=== PATIENT | female | born 1980 | race Two or more races ===

== ENCOUNTER → 2022-02-22 | Outpatient (CLI) | payer MEDICAID ==
[2022-02-22 12:54] LABS: Basophils # (auto) 0 10 ^3/uL (0-0.2); Eosinophils # (auto) 0.1 10 ^3/uL (0-0.8); Lymphocytes # (auto) 2.2 10 ^3/uL (0.4-5.4); Monocytes # (auto) 0.5 10 ^3/uL (0-1.3); Neutrophils # (auto) 3.8 10 ^3/uL (1.6-8.6); Red Cell Distribution Width 15.1 % (11.8-14.3)
[2022-02-22 12:56] LABS: Basophils % (auto) 0.6 % (0.0-2.0); Eosinophils % (auto) 1.3 % (0.0-7.0); Hematocrit 39.4 % (36.0-46.0); Hemoglobin 12.9 g/dL (12.2-16.2); Lymphocytes % (auto) 32.9 % (10.0-50.0); Mean Corpuscular Hemoglobin 25.8 pg (28.0-32.0); Mean Corpuscular Hgb Conc. 32.6 g/dL (32.0-36.0); Mean Corpuscular Volume 79.1 fL (80.0-100.0); Monocytes % (auto) 7.9 % (0.0-12.0); Neutrophils % (auto) 57.3 % (37.0-80.0); Nucleated Red Blood Cells % 0.1 %; Red Blood Cells 4.98 10^6/uL (4.0-5.20); White Blood Cell 6.6 10^3/uL (4.4-10.8)
[2022-02-22 13:03] LABS: Urine Bacteria NONE SEEN /hpf (None Seen); Urine Blood Negative /uL (Negative); Urine Specific Gravity 1.011 (1.001-1.035); Urine WBC <1 /hpf (0 - 5)
[2022-02-22 13:10] LABS: Potassium 3.9 mmol/L (3.5-5.1)
[2022-02-22 13:19] LABS: Albumin 3.5 g/dL (3.4-5.0); BUN/Creatinine Ratio 11.7; Bilirubin, Total 0.4 mg/dL (0.2-1.0); Calcium 9.2 mg/dL (8.5-10.1); Total Protein 8.5 g/dL (6.4-8.2)
== END | disposition home or self-care (01) ==
LOC: LAB 11:44
PROVIDERS: ATTEND Internal Medicine
DX: E78.5 Hyperlipidemia, unspecified (principal); E66.9 Obesity, unspecified; E11.9 Type 2 diabetes mellitus without complications; I10 Essential (primary) hypertension
CPT/HCPCS: 36415; 80053; 80061; 81001; 82043; 83036; 85025

== ENCOUNTER → 2022-04-17 | Outpatient (CLI) | payer MEDICAID ==
[2022-04-17 10:32] LABS: Cholesterol 128 mg/dL (< 200)
[2022-04-17 10:38] LABS: HDL Cholesterol 50 mg/dL (40-59); LDL Cholesterol 71 mg/dL (< 100); Triglycerides 75 mg/dL (< 150)
== END | disposition home or self-care (01) ==
LOC: LAB 09:35
PROVIDERS: ATTEND Internal Medicine
DX: E11.9 Type 2 diabetes mellitus without complications (principal); I10 Essential (primary) hypertension; E66.01 Morbid (severe) obesity due to excess calories
CPT/HCPCS: 36415; 80061; 83036

== ENCOUNTER → 2022-06-26 | Outpatient (CLI) | payer MEDICAID ==
[2022-06-26 12:57] LABS: BUN/Creatinine Ratio 20.5; Potassium 4.1 mmol/L (3.5-5.1)
== END | disposition home or self-care (01) ==
LOC: LAB 11:44
PROVIDERS: ATTEND Internal Medicine
DX: E11.9 Type 2 diabetes mellitus without complications (principal)
CPT/HCPCS: 36415; 80048

== ENCOUNTER → 2022-09-24 | Outpatient (CLI) | payer MEDICAID ==
[2022-09-24 08:22] LABS: Potassium 4.3 mmol/L (3.5-5.1)
[2022-09-24 08:30] LABS: Albumin 3.6 g/dL (3.4-5.0); Bilirubin, Total 0.3 mg/dL (0.2-1.0); Calcium 8.8 mg/dL (8.5-10.1); Total Protein 8.3 g/dL (6.4-8.2)
== END | disposition home or self-care (01) ==
LOC: LAB 07:34
PROVIDERS: ATTEND Internal Medicine
DX: I10 Essential (primary) hypertension (principal); E11.9 Type 2 diabetes mellitus without complications
CPT/HCPCS: 36415; 80053; 82043; 83036

== ENCOUNTER → 2022-12-24 | Outpatient (CLI) | payer MEDICAID ==
[2022-12-24 12:56] LABS: Calcium 8.8 mg/dL (8.5-10.1); Potassium 4.3 mmol/L (3.5-5.1)
[2022-12-24 12:58] LABS: BUN/Creatinine Ratio 13.8 (10.0-20.0)
== END | disposition home or self-care (01) ==
LOC: LAB 11:32
PROVIDERS: ATTEND Internal Medicine
DX: E11.9 Type 2 diabetes mellitus without complications (principal)
CPT/HCPCS: 36415; 80048; 83036

== ENCOUNTER → 2023-03-10 | Outpatient (CLI) | payer MEDICAID ==
[2023-03-10 10:51] LABS: Urine Bacteria NONE SEEN /hpf (None Seen); Urine Blood Negative /uL (Negative); Urine Specific Gravity 1.026 (1.001-1.035); Urine WBC <1 /hpf (0 - 5)
[2023-03-10 11:01] LABS: Potassium 3.8 mmol/L (3.5-5.1)
[2023-03-10 11:15] LABS: BUN/Creatinine Ratio 13.5 (10.0-20.0)
[2023-03-10 11:40] LABS: Micro Albumin 18.6 mg/L (0-30.0)
== END | disposition home or self-care (01) ==
LOC: LAB 10:17
PROVIDERS: ATTEND Internal Medicine
DX: I10 Essential (primary) hypertension (principal); E11.9 Type 2 diabetes mellitus without complications
CPT/HCPCS: 36415; 80048; 81001; 82043; 82570; 83036

== ENCOUNTER → 2023-06-09 | Outpatient (CLI) | payer MEDICAID | END | disposition home or self-care (01) | LOC: LAB 10:13 | PROVIDERS: ATTEND Internal Medicine | DX: E11.9 Type 2 diabetes mellitus without complications (principal) | CPT/HCPCS: 36415; 83036 ==

== ENCOUNTER → 2023-09-08 | Outpatient (CLI) | payer MEDICAID ==
[2023-09-08 10:32] LABS: Anion Gap 4 (5-15); Calcium 9.7 mg/dL (8.5-10.1); Carbon Dioxide 29 mmol/L (20-30); Chloride 105 mmol/L (98-107); Potassium 4.2 mmol/L (3.5-5.1); Sodium 138 mmol/L (136-145)
[2023-09-08 10:37] LABS: Glucose 103 mg/dL (74-106)
[2023-09-08 10:38] LABS: BUN/Creatinine Ratio 7.6 (10.0-20.0); Blood Urea Nitrogen 8 mg/dL (9-23)
[2023-09-08 13:42] LABS: Creatinine, Urine 129.05 mg/dL (30.0-125.0)
== END | disposition home or self-care (01) ==
LOC: LAB 09:31
PROVIDERS: ATTEND Internal Medicine
DX: E11.9 Type 2 diabetes mellitus without complications (principal)
CPT/HCPCS: 36415; 80048; 82043; 82570; 83036

== ENCOUNTER → 2024-03-04 | Outpatient (CLI) | payer MEDICAID ==
[2024-03-04 11:31] LABS: Basophils # (auto) 0 10 ^3/uL (0-0.2); Basophils % (auto) 0.3 % (0.0-2.0); Eosinophils # (auto) 0.1 10 ^3/uL (0-0.8); Eosinophils % (auto) 1.4 % (0.0-7.0); Hematocrit 38.4 % (36.0-46.0); Hemoglobin 13.4 g/dL (12.2-16.2); Lymphocytes # (auto) 2.8 10 ^3/uL (0.4-5.4); Lymphocytes % (auto) 26.9 % (10.0-50.0); Mean Corpuscular Volume 85.6 fL (80.0-100.0); Monocytes # (auto) 0.8 10 ^3/uL (0-1.3); Neutrophils # (auto) 6.5 10 ^3/uL (1.6-8.6); Neutrophils % (auto) 63.4 % (37.0-80.0); Red Blood Cells 4.48 10^6/uL (4.0-5.20); Red Cell Distribution Width 13.4 % (11.8-14.3); White Blood Cell 10.3 10^3/uL (4.4-10.8)
[2024-03-04 12:24] LABS: Alanine Aminotransferase 15 U/L (7-40); Alkaline Phosphatase 57 U/L (46-116); Anion Gap 7 (5-15); Aspartate Aminotransferase 13 U/L (13-40); BUN/Creatinine Ratio 8.9 (10.0-20.0); Blood Urea Nitrogen 8 mg/dL (9-23); Calcium 9.3 mg/dL (8.7-10.4); Carbon Dioxide 27 mmol/L (20-30); Chloride 107 mmol/L (98-107); Glucose 98 mg/dL (74-106); LDL Cholesterol 94 mg/dL (< 100); Potassium 3.5 mmol/L (3.5-5.1); Sodium 141 mmol/L (136-145); Triglycerides 87 mg/dL (< 150)
[2024-03-04 12:25] LABS: Bilirubin, Total 0.4 mg/dL (0.2-1.0); Cholesterol 155 mg/dL (< 200); HDL Cholesterol 45 mg/dL (40-59); Total Protein 7.1 g/dL (5.7-8.2)
== END | disposition home or self-care (01) ==
LOC: LAB 11:18
PROVIDERS: ATTEND Internal Medicine
DX: E11.9 Type 2 diabetes mellitus without complications (principal)
CPT/HCPCS: 36415; 80053; 80061; 85025

== ENCOUNTER → 2024-03-09 | Outpatient (CLI) | payer MEDICAID ==
[2024-03-09 11:59] LABS: Urine Bacteria None Seen /hpf (None Seen)
[2024-03-09 12:31] LABS: Urine Blood Negative /uL (Negative); Urine Clarity Clear (Clear); Urine Color Light-Yellow (Yellow); Urine Protein, UAD Negative (Negative); Urine Specific Gravity 1.017 (1.001-1.035); Urine Urobilinogen Normal (Negative); Urine WBC <1 /hpf (0 - 5); Urine pH 6.5 (5.0-9.0)
[2024-03-09 12:35] LABS: Basophils # (auto) 0 10 ^3/uL (0-0.2); Basophils % (auto) 0.4 % (0.0-2.0); Eosinophils # (auto) 0.1 10 ^3/uL (0-0.8); Eosinophils % (auto) 1.4 % (0.0-7.0); Hematocrit 38.6 % (36.0-46.0); Hemoglobin 13.1 g/dL (12.2-16.2); Lymphocytes # (auto) 2.5 10 ^3/uL (0.4-5.4); Lymphocytes % (auto) 34.6 % (10.0-50.0); Mean Corpuscular Hemoglobin 28.9 pg (28.0-32.0); Mean Corpuscular Hgb Conc. 33.8 g/dL (32.0-36.0); Mean Corpuscular Volume 85.6 fL (80.0-100.0); Monocytes # (auto) 0.6 10 ^3/uL (0-1.3); Monocytes % (auto) 8.4 % (0.0-12.0); Neutrophils % (auto) 55.2 % (37.0-80.0); Red Blood Cells 4.51 10^6/uL (4.0-5.20); Red Cell Distribution Width 13.9 % (11.8-14.3); White Blood Cell 7.3 10^3/uL (4.4-10.8)
[2024-03-09 13:32] LABS: Erythrocyte Sedimentation Rate 17 mm/hr (0-20)
== END | disposition home or self-care (01) ==
LOC: LAB 11:48
PROVIDERS: ATTEND Internal Medicine
DX: Z12.11 Encounter for screening for malignant neoplasm of colon (principal); I10 Essential (primary) hypertension; E11.9 Type 2 diabetes mellitus without complications; E78.5 Hyperlipidemia, unspecified
CPT/HCPCS: 36415; 81001; 85025; 85652

== ENCOUNTER → 2024-03-29 | Outpatient (CLI) | payer MEDICAID | END | disposition home or self-care (01) | LOC: LAB 15:16 | PROVIDERS: ATTEND Internal Medicine | DX: Z12.11 Encounter for screening for malignant neoplasm of colon (principal); E11.9 Type 2 diabetes mellitus without complications; E78.5 Hyperlipidemia, unspecified | CPT/HCPCS: 82270 ==

== ENCOUNTER → 2025-02-09 | Outpatient (CLI) | payer MEDICAID ==
[~2025-02-09] VITALS: Ht 170.2 cm; Wt 117.9 kg
[~2025-02-09] MED LIST: ADENOSINE 90 MG/30 ML INJ IV ONE; ADENOSINE 99 MG in GIVE UN-DILUTED 0 ML IV ONE
== END | disposition home or self-care (01) ==
LOC: Rad HDHVI 09:28
PROVIDERS: ATTEND Internal Medicine Cardiovascular Disease
DX: Z01.810 Encounter for preprocedural cardiovascular examination (principal); I10 Essential (primary) hypertension; I49.1 Atrial premature depolarization; I44.0 Atrioventricular block, first degree; E11.9 Type 2 diabetes mellitus without complications; E78.5 Hyperlipidemia, unspecified; Z13.6 Encounter for screening for cardiovascular disorders; Z82.49 Family history of ischemic heart disease and other diseases of the circulatory system
CPT/HCPCS: 78452; 93017; A9500; J0153

== ENCOUNTER 2025-03-21 09:03 | Outpatient (CLI) | payer MEDICAID ==
[2025-03-21 09:11] VITALS: BP 116/67; PULSE 76; RESP 16; O2SAT 97
[2025-03-21 09:43] VITALS: BP 111/61; PULSE 68; RESP 16; O2SAT 97
[2025-03-21] MEDS ORDERED: GABA400C PO (11:21)
[2025-03-21] MEDS ORDERED: SEMA2INJ3 SC (11:21)
[2025-03-21] MEDS ORDERED: IBUP-1454 PO (11:21)
[2025-03-21] MEDS ORDERED: METH-1181 PO (11:21)
[2025-03-21] MEDS ORDERED: METO-159 PO (11:21)
[2025-03-21] MEDS ORDERED: ATOR20TA50 PO (11:21)
[2025-03-21] MEDS ORDERED: AMLO1TAB23 PO (11:21)
[2025-03-21] MEDS ORDERED: METF-372 PO (11:21)
[2025-03-21] MEDS ORDERED: LISI40TA16 PO (11:21)
[2025-03-21] MEDS ORDERED: MESA400C5 PO (11:21)
[2025-03-21] MEDS ORDERED: ALOG1TAB2 PO (11:21)
[2025-03-21] MEDS ORDERED: TRIA37.586 PO (11:21)
[2025-03-21] MEDS ORDERED: DAPA1TAB4 PO (11:21)
[2025-03-21] MEDS ORDERED: FINE20TA PO (11:21)
[2025-03-21] MEDS ORDERED: TRAM50TA2 PO (11:21)
[2025-03-21] MEDS ORDERED: LIDO3CRE16 TOP (11:24)
--- NOTE | 2025-03-21 12:30 | DVH ---
XY CHEST TWO VIEWS ROUTINE CLINICAL HISTORY: PRE OP CARDIAC CLEARANCE, pain COMPARISON: None TECHNIQUE: Frontal and lateral view of the chest was obtained FINDINGS: Lines and Tubes: None Lungs: No focal consolidation. Pleura: No effusion. No pneumothorax. Cardiomediastinal contours: Unremarkable Bones: No acute osseous abnormality. IMPRESSION: No acute cardiopulmonary disease.
== END 2025-03-21 17:00 | disposition home or self-care (01) ==
LOC: Rad HDHVI 09:03
PROVIDERS: ATTEND Internal Medicine Cardiovascular Disease
DX: Z01.818 Encounter for other preprocedural examination (principal); R94.31 Abnormal electrocardiogram [ECG] [EKG]; I51.89 Other ill-defined heart diseases
CPT/HCPCS: 71046; 93005; G0463

== ENCOUNTER 2025-03-24 06:56 | Day surgery (SDC) | payer MEDICAID ==
[2025-03-21 12:16] LABS: Hematocrit 41.7 % (36.0-46.0); Hemoglobin 14.2 g/dL (12.2-16.2); Mean Corpuscular Hemoglobin 28.9 pg (28.0-32.0); Mean Corpuscular Volume 85.1 fL (80.0-100.0); Nucleated Red Blood Cells % 0.0 %
[2025-03-21 12:34] LABS: Chloride 103 mmol/L (98-107); Potassium 3.8 mmol/L (3.5-5.1)
[2025-03-21 12:35] LABS: Calcium 9.8 mg/dL (8.7-10.4)
[2025-03-21 12:38] LABS: INR 0.94 (0.9-1.15); Partial Thromboplastin Time 25.4 SEC (24.5-34.5); Prothrombin Time 10.0 sec (9.3-11.8)
[2025-03-21 12:39] LABS: Carbon Dioxide 29 mmol/L (20-31)
[2025-03-21 12:40] LABS: BUN/Creatinine Ratio 12.7 (10.0-20.0); Blood Urea Nitrogen 17 mg/dL (9-23); Glucose 99 mg/dL (74-106)
[2025-03-21 14:13] LABS: Anion Gap 6 (5-15); Sodium 138 mmol/L (136-145)
[2025-03-24] VITALS (7 sets, daily range): BP systolic 121–148; BP diastolic 78–104; PULSE 62–79; RESP 12–15; O2SAT 94–98
[~2025-03-24] VITALS: Ht 170.2 cm; Wt 111.1 kg
[~2025-03-24 06:56] MED LIST changes: -ADENOSINE 90 MG/30 ML INJ IV ONE; -ADENOSINE 99 MG in GIVE UN-DILUTED 0 ML IV ONE; +ALOG1TAB2 PO; +AMLO1TAB23 PO; +ATOR20TA50 PO; +DAPA1TAB4 PO; +FINE20TA PO; +GABA400C PO; +IBUP-1454 PO; +LIDO3CRE16 TOP; +LISI40TA16 PO; +MESA400C5 PO; +METF-372 PO; +METH-1181 PO; +METO-159 PO; +SEMA2INJ3 SC; +TRAM50TA2 PO; +TRIA37.586 PO
[2025-03-24] MEDS ORDERED: IOHEXOL 350 MG/ML 100ML IJ ONE (07:31)
[2025-03-24] MEDS ORDERED: LIDOCAINE 2%HCL (LOCAL ANESTH.) INJ 20ML MDV ONE (08:21)
[2025-03-24] MEDS ORDERED: ANGIOMAX 250 MG VIAL IV ONE (08:25)
[2025-03-24] MEDS ORDERED: SODIUM CHL 0.9% 0 ML ONE (08:25)
[2025-03-24] MEDS ORDERED: MIDAZOLAM HCL 2MG/2ML 2ml VIAL (1mg/ml) ONE (10:37)
[2025-03-24] MEDS ORDERED: fentaNYL CITRATE 100 MCG/2 ML VL ONE (10:37)
--- NOTE | 2025-03-24 12:08 | DVHDS ---
DATE OF DISCHARGE: 03/24/2025 DISCHARGE DIAGNOSES: * Hypertension. * Diabetes. * Preop clearance for lower back surgery. HOSPITAL COURSE: The patient had abnormal stress test. Coronary angiography failed to demonstrate any epicardial disease. Therefore, the patient may proceed with surgery. She is ASA II classification, ejection fraction of 60% with an LVEDP of 12 mmHg. Follow up with me in 1 week. Stable at the time of discharge. DISPOSITION: Home. ACTIVITY: As instructed. DIET: 2 gram sodium diet. Inder Carolina MD SA/EKT TID: [id number] RECEIPT: [id number]
--- NOTE | 2025-03-24 12:21 | DVHOP ---
DATE OF SURGERY: 03/24/2025 PROCEDURES TO BE PERFORMED: * Selective left and right coronary angiography. * Ventriculogram. * Right iliac angiography. * Conscious sedation. DESCRIPTION OF PROCEDURE: The patient was prepped and draped in the surgical field. 1% Xylocaine used to anesthetize the right groin. Using a Cook needle, right femoral artery was engaged using a Seldinger technique, a 6-Romansh sheath was placed in the right femoral artery. Using a 6-Romansh JL4 catheter, 6-Romansh JR4 catheter, selective left and right coronary angiographies were performed. A 6-Romansh pigtail catheter and ventriculogram was done. There were no complications. The patient tolerated the procedure well. Right femoral arteriotomy site was closed using the AngioSeal device. RESULTS: * Left main normal. * Left anterior descending artery without any flow restrictive lesion. * Circumflex dominant vessel without any flow restrictive lesion. * Right coronary artery non-dominant vessel, 2.5 mm in size without any flow restrictive lesion. * Left ventricular function was preserved with an estimated EF of 60% with an LVEDP of 10 to 12 mmHg with no gradient across the aortic valve. CONCLUSION: Thus, the patient may proceed with spinal surgery from cardiac standpoint. Coronary anatomy was normal with circumflex dominant system. Echocardiogram shows an ejection fraction of 60% as well. No evidence of pulmonary hypertension or left ventricular end diastolic pressure elevation. She is ASA II classification. I will continue to follow the patient. Inder Carolina MD SA/TESSA TID: [id number] RECEIPT: [id number]
[2025-03-24] MEDS: HYDROcodone-ACET 5/325MG TAB PO ONE (12:40)
--- NOTE | 2025-03-24 12:50 | DVHHP ---
ADMIT DATE: 03/24/2025 HISTORY OF PRESENT ILLNESS: The patient is a 45-year-old obese female. She was scheduled to undergo lower back surgery. She needed cardiac clearance. She underwent stress test. Stress test shows inferolateral reversibility and I believe it is tissue attenuation because of the large breast and body size, but because she needs surgical clearance, it is felt that the patient should undergo coronary angiography, even though the index of suspicion is low, but with an abnormal stress Cardiolite and with a high-risk surgery which required prolonged anesthesia, it is felt at best to undergo coronary angiography. PAST MEDICAL HISTORY: Significant for hypertension, hyperlipidemia and diabetes as well. CURRENT MEDICATIONS: Include amlodipine, atorvastatin, lisinopril, and metoprolol. SOCIAL HISTORY: She used to smoke, but discontinued smoking approximately 3 years ago in 2021. She is a noninsulin-dependent diabetic. She denies any cardiac arrest. She denies any history of any renal failure. She is hypertensive; however, no fever, no chills, no melena or hematochezia, no hematemesis, hemoptysis, or hematuria. She denies any seizure disorder, any head trauma. Denies any movement disorder. She is morbidly obese and will require weight loss reduction. I have stressed the need for her to do weight loss reduction because going through for lumbar radiculopathy without weight loss should not improve significantly and I told her the downside. PHYSICAL EXAMINATION: VITAL SIGNS: Blood pressure is 142/80, pulse 70, O2 saturation 98%. HEENT: Pupils are reactive. Funduscopic exam is benign. Sclerae anicteric. Extraocular muscles are intact. No papilledema appreciated. Oral mucosa moist. Posterior pharynx without any exudate. NECK: No cervical adenopathy. No supraclavicular adenopathy. No JVD appreciated. Carotid pulses are 2+ and symmetrical. Thyroid is within normal limits. PULMONARY: Clear to auscultation. No tympanic percussion. No egophony noted. No rhonchi. No wheezes. CARDIOVASCULAR: Regular rate, distant heart sounds, however. ABDOMEN: Obese, unable to appreciate organomegaly. Stool guaiac is negative. NEUROLOGIC: The patient is intact. DTRs are 2+ symmetrical. Cranial nerves 2-12 are within normal limits. EKG does not show any changes. Stress test as indicated shows lateral apical and inferior reversibility with preserved left ventricular ejection fraction. ASSESSMENT AND PLAN: Thus, the patient is now to undergo left heart catheterization because of abnormal stress test and also because the patient needs risk stratification before she undergoes lumbar surgery. We will make further recommendations after risks and benefits were explained to the patient. Inder Carolina MD SA/DIGNA/TRELL TID: [id number] RECEIPT: [id number]
== END 2025-03-24 13:45 | disposition home or self-care (01) ==
LOC: CATH 06:56
PROVIDERS: ATTEND Internal Medicine Cardiovascular Disease
DX: R94.39 Abnormal result of other cardiovascular function study (principal); E11.9 Type 2 diabetes mellitus without complications; E66.01 Morbid (severe) obesity due to excess calories; E78.5 Hyperlipidemia, unspecified; I10 Essential (primary) hypertension; Z87.891 Personal history of nicotine dependence; Z79.899 Other long term (current) drug therapy; Z98.890 Other specified postprocedural states
CPT/HCPCS: 36415; 80048; 84702; 85025; 85610; 85730; 93458; C1760; C1894; J1644; J2250; J3010; J7030; Q9967; 99152

== ENCOUNTER → 2025-04-20 | Outpatient (CLI) | payer MEDICAID ==
[2025-04-20 10:34] LABS: Hematocrit 42.8 % (36.0-46.0); Hemoglobin 14.8 g/dL (12.2-16.2); Mean Corpuscular Hemoglobin 29.1 pg (28.0-32.0); Mean Corpuscular Volume 84.6 fL (80.0-100.0); Nucleated Red Blood Cells % 0.1 %
[2025-04-20 10:37] LABS: Urine Protein, UAD Negative (Negative)
[2025-04-20 10:38] LABS: Alanine Aminotransferase 11 U/L (7-40); Albumin 4.7 g/dL (3.2-4.8); Alkaline Phosphatase 66 U/L (46-116); Anion Gap 11 (5-15); BUN/Creatinine Ratio 13.6 (10.0-20.0); Bilirubin, Total 0.5 mg/dL (0.2-1.0); Blood Urea Nitrogen 14 mg/dL (9-23); Calcium 10.0 mg/dL (8.7-10.4); Carbon Dioxide 26 mmol/L (20-31); Chloride 103 mmol/L (98-107); Cholesterol 168 mg/dL (< 200); Glucose 87 mg/dL (74-106); HDL Cholesterol 49 mg/dL (40-59); Potassium 3.7 mmol/L (3.5-5.1); Sodium 140 mmol/L (136-145); Triglycerides 86 mg/dL (< 150)
[2025-04-20 10:41] LABS: Total Protein 8.8 g/dL (5.7-8.2)
[2025-04-20 10:48] LABS: Microalb/Creat Ratio, Urine 42.0
== END | disposition home or self-care (01) ==
LOC: LAB 09:48
PROVIDERS: ATTEND Internal Medicine
DX: E11.9 Type 2 diabetes mellitus without complications (principal); E78.5 Hyperlipidemia, unspecified; E66.9 Obesity, unspecified; Z12.11 Encounter for screening for malignant neoplasm of colon; Z79.899 Other long term (current) drug therapy
CPT/HCPCS: 36415; 80053; 80061; 81001; 82043; 82306; 82570; 82607; 83036; 84443; 85025

== ENCOUNTER 2025-05-03 15:24 | Outpatient (CLI) | payer MEDICAID | END 2025-05-03 17:00 | disposition home or self-care (01) | LOC: LAB 15:24 | PROVIDERS: ATTEND Internal Medicine | DX: E11.9 Type 2 diabetes mellitus without complications (principal); E78.5 Hyperlipidemia, unspecified; E66.9 Obesity, unspecified; Z12.11 Encounter for screening for malignant neoplasm of colon | CPT/HCPCS: 82270; 82272 ==

== ENCOUNTER 2025-08-01 10:23 | Outpatient (CLI) | payer MEDICAID ==
[2025-08-01 11:27] LABS: Alanine Aminotransferase 13 U/L (7-40); Albumin 4.2 g/dL (3.2-4.8); Alkaline Phosphatase 97 U/L (46-116); Anion Gap 8 (5-15); BUN/Creatinine Ratio 11.3 (10.0-20.0); Bilirubin, Total 0.3 mg/dL (0.2-1.0); Blood Urea Nitrogen 12 mg/dL (9-23); Calcium 9.4 mg/dL (8.7-10.4); Carbon Dioxide 29 mmol/L (20-31); Chloride 104 mmol/L (98-107); Cholesterol 142 mg/dL (< 200); Glucose 88 mg/dL (74-106); HDL Cholesterol 50 mg/dL (40-59); Potassium 4.1 mmol/L (3.5-5.1); Sodium 141 mmol/L (136-145); Total Protein 8.1 g/dL (5.7-8.2); Triglycerides 74 mg/dL (< 150)
[2025-08-01 11:42] LABS: Free T3 3.59 pg/mL (2.3-4.2); Free T4 (Free Thyroxine) 1.0 ng/dL (0.89-1.76)
[2025-08-01 11:59] LABS: Microalb/Creat Ratio, Urine < 3.0
== END 2025-08-01 17:00 | disposition home or self-care (01) ==
LOC: LAB 10:23
PROVIDERS: ATTEND Internal Medicine
DX: E11.9 Type 2 diabetes mellitus without complications (principal); E78.5 Hyperlipidemia, unspecified; E55.9 Vitamin D deficiency, unspecified; M54.50 Low back pain, unspecified
CPT/HCPCS: 36415; 80053; 80061; 82043; 82306; 82570; 83036; 84439; 84443; 84480; 84481